=== PATIENT | male | born 1995 | race Caucasian/White ===

== ENCOUNTER 2018-04-17 22:38 | Emergency (ER) | payer OTHER, SELFPAY ==
[2018-04-17 22:39] VITALS: BP 144/69; PULSE 109; RESP 18; TEMP 37.6; O2SAT 97; BMI 31.8
[2018-04-17 22:55] VITALS: BP 144/69; PULSE 109; RESP 15; TEMP 37.6; O2SAT 96
--- NOTE | 2018-04-17 23:18 | ED.VISSUMM ---
- ER Visit Summary Date of Service: 04/17/18 Chief Complaint: Buttock swelling and pain History of Present Illness: The patient is a 22 M who presents for 3 days of gradually worsening buttock swelling and pain. Patient noted pain at the superior gluteal cleft 3 days ago, and family examined the area, noting 3 small holes. He denies any drainage from these areas. Since then he has been having progressively worsening pain now with redness and swelling of the surrounding skin. He had a temperature of 100 today. He vomited once. He took ibuprofen with minimal improvement in his symptoms. No history of ulcerative colitis or Crohn's. Denies any other symptoms at this time. Physical Examination: Vital signs: afebrile, hemodynamically stable, no hypoxia on room air General: well nourished, well developed, in no distress Skin: warm, dry, no rash, no pallor HEENT: normocephalic and atraumatic; PERRL, EOMI, moist mucous membranes Cardiovascular: tachycardic rate and rhythm, no peripheral edema Respiratory: No increased work of breathing Abdominal: Abdomen is soft, nontender, superior gluteal cleft shows three punctate lesions, one pustular, with surrounding erythema and induration symmetrically and bilaterally. Bedside US concerning for loculated abscess under pustule MSK: Moves all extremities, no deformities, normal strength Neuro: Awake and alert, oriented ?4. No facial droop, sensation and motor function intact and symmetric Test Results: Medications Given Hydrocodone Bitart/Acetaminophen ([place] 5mg-325mg) 0 tablet PO .TAKE HOME MED TYRESE Discontinued Medications Hydrocodone Bitart/Acetaminophen ([place] 5mg-325mg) 1 tablet PO X1 ONE Stop: 04/17/18 23:17 Last Admin: 04/17/18 23:38 Dose: 1 tablet Cephalexin (Keflex) 500 mg PO X1 ONE Stop: 04/17/18 23:50 Lidocaine HCl (Lidocaine Hcl 1% Mdv) 0 ml INFILT X1 ONE Stop: 04/17/18 23:17 Last Admin: 04/17/18 23:40 Dose: 5 ml Ondansetron HCl (Zofran Odt) 4 mg PO X1 ONE Stop: 04/17/18 23:17 Last Admin: 04/17/18 23:40 Dose: 4 mg Trimethoprim/Sulfamethoxazole (Bactrim Ds) 1 tablet PO X1 ONE Stop: 04/17/18 23:50 Emergency Department Course and Treatment: Patient's history and examination is most consistent with a pilonidal cyst with surrounding cellulitis. Bedside ultrasound did reveal a pocket of fluid, assumed to be pus. Discussed risks and benefits of an incision and drainage for pilonidal abscess, and patient consented to incision and drainage. He was given [place] for pain. Area was cleansed with Betadine. Area was locally anesthetized with 6 cc 1% lidocaine. Good anesthesia was achieved, a 15 blade was used to make a 1 cm stab incision over the pustule that corresponded with the ultrasound fluid collection. There was immediate return of foul green and yellow purulent drainage. Loculations were broken up with curved hemostats and there was return of more foul-smelling purulent drainage. A large amount of purulent drainage was expressed. There was a clump of hair that also was expressed. Cavity was irrigated. Patient tolerated the procedure well, and some of the surrounding indurated skin was softer, however the cellulitic changes still persisted. Patient was started on Bactrim and Keflex for cellulitic changes associated with the pilonidal cyst. Patient was given wound care instructions. He has an appointment with his primary care doctor tomorrow for the same complaint, and he will keep that appointment to serve as a wound check. We discussed that he may need surgical intervention for definitive treatment if it returns. Patient discharged home in improved condition. Treatment Plan: [] Disposition: [] Impression: Pilonidal cyst with abscess and surrounding cellulitis, status post incision and drainage This note was generated with [employer] dictation software. It may contain incorrect words, spelling, and punctuation that were not noted in review of the chart prior to signing ED Disposition - Plan for ED Patient: Chief Complaint: Abscess Prescriptions: Hydrocodone Bitart/Apap 5-325 [[place] 5MG-325MG] 1 tab PO Q4H PRN PRN 2 Days #8 tab PRN Reason: Pain Cephalexin [Keflex] 500 mg PO Q6 #40 cap Smz/Tmp Ds [Bactrim Ds] 1 tab PO BID #20 tab Referrals: Care Physician,No Primary [NON-STAFF] -
--- NOTE | 2018-04-17 23:21 | ED.DCSUM_ITS ---
- ER Visit Summary Date of Service: 04/17/18 Chief Complaint: Buttock swelling and pain History of Present Illness: The patient is a 22 M who presents for 3 days of gradually worsening buttock swelling and pain. Patient noted pain at the superior gluteal cleft 3 days ago, and family examined the area, noting 3 small holes. He denies any drainage from these areas. Since then he has been having progressively worsening pain now with redness and swelling of the surrounding skin. He had a temperature of 100 today. He vomited once. He took ibuprofen with minimal improvement in his symptoms. No history of ulcerative colitis or Crohn's. Denies any other symptoms at this time. Physical Examination: Vital signs: afebrile, hemodynamically stable, no hypoxia on room air General: well nourished, well developed, in no distress Skin: warm, dry, no rash, no pallor HEENT: normocephalic and atraumatic; PERRL, EOMI, moist mucous membranes Cardiovascular: tachycardic rate and rhythm, no peripheral edema Respiratory: No increased work of breathing Abdominal: Abdomen is soft, nontender, superior gluteal cleft shows three punctate lesions, one pustular, with surrounding erythema and induration symmetrically and bilaterally. Bedside US concerning for loculated abscess under pustule MSK: Moves all extremities, no deformities, normal strength Neuro: Awake and alert, oriented ?4. No facial droop, sensation and motor function intact and symmetric Test Results: Medications Given Hydrocodone Bitart/Acetaminophen ([place] 5mg-325mg) 0 tablet PO .TAKE HOME MED TYRESE Discontinued Medications Hydrocodone Bitart/Acetaminophen ([place] 5mg-325mg) 1 tablet PO X1 ONE Stop: 04/17/18 23:17 Last Admin: 04/17/18 23:38 Dose: 1 tablet Cephalexin (Keflex) 500 mg PO X1 ONE Stop: 04/17/18 23:50 Lidocaine HCl (Lidocaine Hcl 1% Mdv) 0 ml INFILT X1 ONE Stop: 04/17/18 23:17 Last Admin: 04/17/18 23:40 Dose: 5 ml Ondansetron HCl (Zofran Odt) 4 mg PO X1 ONE Stop: 04/17/18 23:17 Last Admin: 04/17/18 23:40 Dose: 4 mg Trimethoprim/Sulfamethoxazole (Bactrim Ds) 1 tablet PO X1 ONE Stop: 04/17/18 23:50 Emergency Department Course and Treatment: Patient's history and examination is most consistent with a pilonidal cyst with surrounding cellulitis. Bedside ultrasound did reveal a pocket of fluid, assumed to be pus. Discussed risks and benefits of an incision and drainage for pilonidal abscess, and patient consented to incision and drainage. He was given [place] for pain. Area was cleansed with Betadine. Area was locally anesthetized with 6 cc 1% lidocaine. Good anesthesia was achieved, a 15 blade was used to make a 1 cm stab incision over the pustule that corresponded with the ultrasound fluid collection. There was immediate return of foul green and yellow purulent drainage. Loculations were broken up with curved hemostats and there was return of more foul-smelling purulent drainage. A large amount of purulent drainage was expressed. There was a clump of hair that also was expressed. Cavity was irrigated. Patient tolerated the procedure well, and some of the surrounding indurated skin was softer, however the cellulitic changes still persisted. Patient was started on Bactrim and Keflex for cellulitic changes associated with the pilonidal cyst. Patient was given wound care instructions. He has an appointment with his primary care doctor tomorrow for the same complaint, and he will keep that appointment to serve as a wound check. We discussed that he may need surgical intervention for definitive treatment if it returns. Patient discharged home in improved condition. Treatment Plan: [] Disposition: [] Impression: Pilonidal cyst with abscess and surrounding cellulitis, status post incision and drainage This note was generated with [employer] dictation software. It may contain incorrect words, spelling, and punctuation that were not noted in review of the chart prior to signing ED Disposition - Plan for ED Patient: Chief Complaint: Abscess Prescriptions: Hydrocodone Bitart/Apap 5-325 [[place] 5MG-325MG] 1 tab PO Q4H PRN PRN 2 Days #8 tab PRN Reason: Pain Cephalexin [Keflex] 500 mg PO Q6 #40 cap Smz/Tmp Ds [Bactrim Ds] 1 tab PO BID #20 tab Referrals: Care Physician,No Primary [NON-STAFF] -
[2018-04-17] MEDS: HYDROcodone Bitartrate/Apap 5/325 Tablet PO (23:38)
[2018-04-17] MEDS: Ondansetron ODT 4 MG Tablet PO (23:40)
--- NOTE | 2018-04-17 23:56 | DCINST.ED_ITS ---
ED Disposition - Plan for ED Patient: Disposition: Home or Assisted Living Chief Complaint: Abscess Instructions: ED Cyst Pilonidal Infected IandD Prescriptions: Hydrocodone Bitart/Apap 5-325 [[place] 5MG-325MG] 1 tab PO Q4H PRN PRN 2 Days #8 tab PRN Reason: Pain Cephalexin [Keflex] 500 mg PO Q6 #40 cap Smz/Tmp Ds [Bactrim Ds] 1 tab PO BID #20 tab Referrals: Care Physician,No Primary [NON-STAFF] - Doctor,Your [STAFF PHYSICIAN] - 1 Day for another exam Additional Instructions: Take the antibiotics for the full 10 days as prescribed even if you feel better before they are completed. Keep your appointment with your primary care doctor tomorrow for a wound check. You may need to follow-up with the surgeon for complete excision of the pilonidal cyst if it comes back. If you have any worsening of your condition or any new concerning symptoms, please return immediately to the emergency department for another evaluation.
[2018-04-17] MEDS: Cephalexin 250 MG Capsule 500 MG PO (23:59)
[2018-04-17] MEDS: Smz/Tmp Ds Tablet 1 TABLET PO (23:59)
[2018-04-18] MEDS: HYDROcodone Bitartrate/Apap 5/325 Tablet PO
[2018-04-18 00:10] VITALS: BP 138/79; PULSE 98; RESP 15; O2SAT 97
== END 2018-04-18 00:11 | disposition home or self-care (01) ==
PROVIDERS: Emergency Provider Emergency Medicine
DX: L05.01 Pilonidal cyst with abscess (principal); L03.317 Cellulitis of buttock
CPT/HCPCS: 10080; 99284